=== PATIENT | male | born 1990 | race Caucasian/White ===

== ENCOUNTER 2019-09-05 09:29 | Emergency (ER) | payer OTHER ==
--- OUTSIDE RECORDS SUMMARY | 2019-09-05 09:47 | XMS REPORT | Continuity of Care Document ---
:1990 Author Organization [address] [place] [address] Phone Care Team Providers Name Role Phone [facility], UNKNOWN Unavailable Unavailable Allergies, Adverse Reactions, Alerts Substance Reaction Status Substance Type Unknown Medications Medication Instructions Dosage Effective Dates (start - stop) Status Comments Drug Treatment Unknown Problems Condition Effective Dates (start - stop) Clinical Status Unknown Procedures Procedure Date Procedure Unknown Results Test Name Date and Time Measure Units Reference Range Abnormal Flag Status Comments Unknown Encounters Encounter Practice Location Reason(s) Diagnoses Date Provider Providers Description For Visit Copied on Encounter [address] [place] [address] - [facility], UNKNOWN. . [place], [place], [facility], tel:[phone] Family History Family Member Diagnosis Age At Onset Unknown Immunizations Vaccine Date Status Comments Immunization Unknown Payers Payer name Insurance type Covered democrat ID Authorization(s) Workers Compensation [id number] Social History Type Description Quantity Date Captured Comments Unknown Vital Signs Date / Height Weight BMI Pulse Blood Temperature Respiratory Body Head BMI Time: Rate Pressure Rate Surface Circumference percentile Area Unknown Chief Complaint And Reason For Visit No information Reason For Referral Reason For Referral Unknown Plan Of Care Date Type Action Status Unknown Date Type Problem Goal Intervention Status Start Date Unknown History Of Present Illness Encounter Date Complaint History Of Present Illness No information Functional Status Encounter Date Functional Assessment Cognitive Assessment Unknown Medications Administered Medication Instructions Dosage Effective Dates (start - stop) Status Comments Drug Treatment Unknown Instructions Date Instruction Additional Information Unknown
--- OUTSIDE RECORDS SUMMARY | 2019-09-05 09:47 | XMS REPORT | Continuity of Care Document ---
:1990 Author Organization [address] [place] [address] Phone Care Team Providers Name Role Phone [facility], NOT Unavailable Unavailable Allergies, Adverse Reactions, Alerts Substance [...] Providers Description For Visit Copied on Encounter [address] [place] [address] Emergency - [facility] NOT. [place] [id number]. [place], [place], [address] [place] [address] tel:[phone] Family History Family Member Diagnosis Age At Onset Unknown Immunizations Vaccine Date Status Comments Immunization Unknown Payers Payer name Insurance type Covered libertarian ID Authorization(s) Unknown Social History Type Description Quantity Date Captured [...]
[2019-09-05 10:14] VITALS: BP 145/68
--- NOTE | 2019-09-05 10:35 | ED ---
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 p/w right thumb injury 3 days ago closed the latched van door on right thumb and now hurts to bend the thumb at DIP, cannot bend it due to pain, swelling improved and has mild numbness on right tip of thumb - History of Current Complaint Chief Complaint: UCUpperExtremity Stated Complaint: THUMB INJURY Time Seen by Provider: 09/05/19 10:07 Hx Obtained From: Patient Mechanism Of Injury: Blunt Trauma, Direct Blow Onset/Duration: Started Days Ago Timing: Lasting Days Severity Initially: Moderate Severity Currently: Moderate Pain Location: Other: - right thumb Aggravating Factor(s): Nothing Alleviating Factor(s): Nothing Associated Signs & Symptoms: Positive: Swelling, Bruising, Numbness/Tingling - Allergies/Home Medications Allergies/Adverse Reactions: Allergies Allergy/AdvReac Type Severity Reaction Status Date / Time No Known Allergies Allergy Verified 09/05/19 10:04 Home Medications: Home Medications Naproxen [Naproxen 500 mg tab] 500 mg PO BID 10 Days #20 tablet 09/05/19 [Rx] PMH/Surg Hx/FS Hx/Imm Hx - Surgical History Surgery Procedure, Year, and Place: appe ', L shoulder Infectious Disease History: Yes Infectious Disease History: 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 Denies: Traveled Outside the [place] in Last 30 Days - Social History Alcohol Use: Occasionally Substance Use Type: Reports: None Smoking Status (MU): Never Smoked Tobacco Review of Systems Constitutional: Negative Eyes: Negative ENT: Negative Cardiovascular: Negative Respiratory: Negative Gastrointestinal: Negative Genitourinary: Negative Musculoskeletal: Negative Positive: Decreased ROM - right thumb pain Positive: Other Neurological/Mental Status: Negative Psychological: Normal All Other Systems Reviewed And Are Negative: Yes Physical Exam - Summary Physical Exam Summary: Vital Signs Reviewed: Yes Gen: NAD Eye Exam: Normal Eyes: Positive: Conjunctiva Clear ENT: Normal ENT inspection Neck: Supple Respiratory: Lungs clear, Normal breath sounds. Negative: Crackles, Rhonchi, Stridor, Wheezing Cardiovascular Exam: Normal, RRR, S1, S2 Abdomen: NT/ND Musculoskeletal Exam: mild numbness on tip of right thumb , swelling and TTP over DIP, blackened nailbed, ROM limited on DIP Psychological Exam: Normal Skin Exam: Normal Vital Signs On Initial Exam: Initial Vitals Temp Pulse Resp BP Pulse Ox 37.2 C 68 16 145/68 98 09/05/19 10:02 09/05/19 10:02 09/05/19 10:02 09/05/19 10:02 09/05/19 10:02 Diagnostics - Vital Signs Vital Signs Temp Pulse Resp BP Pulse Ox 09/05/19 10:02 37.2 C 68 16 145/68 98 - Laboratory Lab Statement: Any lab studies that have been ordered have been reviewed, and results considered in the medical decision making process. Course/Dx - Course Assessment/Plan: XR of right thumb Neg for fx or dislocation, but pt c/o inability to bend at DIP, so advised to obtain MRI for severe ligamental damage to account for current sx, if sx persist, follow up with hand surgeon, off work for 1 week - Diagnoses Provider Diagnoses: Sprain of right thumb - Critical Care Time Critical Care Statement: Critical care time is provided exclusive of any time spent performing procedures. Discharge ED - Sign-Out/Discharge Documenting (check all that apply): Patient Departure All imaging exams completed and their final reports reviewed: Yes - Discharge Plan Condition: Stable Disposition: HOME Prescriptions: Naproxen [Naproxen 500 mg tab] 500 mg PO BID 10 Days #20 tablet Patient Education Materials: Finger Sprain (ED) Forms: *Work Release Referrals: No Primary Care Phys,NOPCP [Primary Care Provider] - Additional Instructions: PLEASE OBTAIN MRI OF RIGHT THUMB TO RULE OUT SERIOUS LIGAMENTAL INJURY OR OCCULT FRACTURE TAKE OFF ONE WEEK FROM FULL DUTIES UNTIL MRI RESULTS COME BACK, FOLLOW UP WITH HAND SURGEON IF MOBILITY OF THUMB DOES NOT IMPROVE IN 2 WEEKS. - Billing Disposition and Condition Condition: STABLE Disposition: Home
[2019-09-05] MEDS ORDERED: Naproxen TAB* 250 MG PO ONE (11:16)
== END 2019-09-05 11:52 | disposition home or self-care (01) ==
LOC: UCEAST 09:29
DX: S63.601A Unspecified sprain of right thumb, initial encounter (principal); W23.0XXA Caught, crushed, jammed, or pinched between moving objects, initial encounter; Y93.89 Activity, other specified; Y92.818 Other transport vehicle as the place of occurrence of the external cause
CPT/HCPCS: 99212; A9270-GY; G0463